=== PATIENT | male | born 2005 | race Caucasian/White ===

== ENCOUNTER 2023-03-07 20:56 | Inpatient (IN) | payer MEDICAID, SELFPAY ==
[2023-03-07 21:20] VITALS: BP 131/74; PULSE 97; RESP 12; TEMP 37.2; O2SAT 100
[2023-03-07 21:23] VITALS: BP 119/94; PULSE 106; O2SAT 98; BMI 20.4
[2023-03-07 21:42] LABS: Hematocrit 39.5 % (42.0-52.0); Hemoglobin 13.7 g/dl (14.0-18.0); Mean Corpuscular HGB Conc 34.7 g/dl (31.0-36.0); Mean Corpuscular Hemoglobin 31.4 pg (27.0-33.0); Mean Corpuscular Volume 90.4 fL (80.0-98.0); Mean Platelet Volume 8.9 fL (9.4-12.4); Platelet Count 279 X10*3/uL (160-400); Red Blood Count 4.37 X10*6/uL (4.60-5.80); Red Cell Distribution Width 11.6 % (11.0-16.0); White Blood Count 8.7 X10*3/uL (4.8-10.8)
[2023-03-07 21:44] LABS: Appearance Urine Clear; Color Urine Yellow; Glucose Urine UA Negative (Negative); Leukocyte Esterase Urine Moderate (2+) (Negative); Nitrite Urine Negative (Negative); PH 6.5 (5.0-9.0); Specific Gravity - Urine <= 1.005 (1.005-1.025); UMIC TRIGGER UACC YES; Urine Blood Negative (Negative); Urine Ketones Negative (Negative); Urine Protein Negative (Neg-Trace)
[2023-03-07 21:56] LABS: Alanine Aminotransferase 9 U/L (0-40); Albumin Level 4.6 g/dL (3.5-5.0); Alkaline Phosphatase 44 U/L (39-117); Anion Gap 9 (12-20); Aspartate Amino Transferase 15 U/L (5-37); Blood Urea Nitrogen 7 mg/dL (9-16); Calcium 9.8 mg/dL (8.4-10.2); Carbon Dioxide 26 mmol/L (22-29); Chloride 110 mmol/L (96-108); Creatinine Clr Calc Pharmacy 109.5; Estimated Glomerular Filt Rate > 60; Glucose Random 103 mg/dL (60-115); Potassium 3.7 mmol/L (3.3-5.1); Sodium 141 mmol/L (135-145); Total Protein 7.6 g/dL (6.5-8.0)
[2023-03-07 21:59] LABS: Bacteria Urine None Seen (None Seen); Hyaline Casts Urine 0-2 /LPF (0-2); RBC Urine 0-2 /HPF (0-2); Squamous Epithelial Cell Urine 0-2 /HPF (0-2); WBC Urine 0-5 /HPF (0-5)
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
[2023-03-07 22:18] LABS: Ethanol < 10 mg/dL
[2023-03-07 22:23] LABS: Amphetamine Screen Urine Not Detected (Not Detect); Barbiturates, Urine Not Detected (Not Detect); Benzodiazepines Screen Urine Not Detected (Not Detect); Cannabinoid Screen Urine Not Detected (Not Detect); Cocaine Screen Urine Not Detected (Not Detect); Fentanyl, urine Not Detected (Not Detect); Opiate Screen Urine Not Detected (Not Detect); Phencyclidine Screen Urine Not Detected (Not Detect)
[2023-03-07 22:56] LABS: COVID-19 Test Negative (Negative); IDNOW Serial# 08D9AD1C
[2023-03-08] VITALS (7 sets, daily range): BP systolic 107–143; BP diastolic 58–87; PULSE 65–84; RESP 14–18; TEMP 36.3–37.1; O2SAT 95–100
--- NOTE | 2023-03-08 01:32 | MHC.EDTECH ---
Pt was give peanut butter and jell sandwich 2 cheese sticks and 2 juices
--- NOTE | 2023-03-08 08:19 | PC.NURSE ---
Alert and oriented. Denies any SI at this time. States become overwhelmed yesterday when thinking about everything going on in his life. States calmer now and is trying to not think about his stresors at this time
--- NOTE | 2023-03-08 09:56 | PC.NURSE ---
Alert and oriented. Pleasant and cooperative. Remains with constant assisted living care manager. Denies pain, denies SI. VSS.
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
[2023-03-09 06:00] VITALS: BP 141/81; PULSE 103; RESP 18; TEMP 36.7; O2SAT 99
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
--- NOTE | 2023-03-09 19:01 | PC.NURSE ---
per patient takes testosterone 16.5/2.5 as an injection will call pharmacy to verify.
[2023-03-09 22:21] VITALS: BP 138/88; PULSE 82; TEMP 37; O2SAT 100
[2023-03-09] MEDS: OLANZapine 5 MG TABLET PO (22:31)
[2023-03-10 09:36] VITALS: BP 117/67; PULSE 89; RESP 16; TEMP 37.1; O2SAT 96
--- NOTE | 2023-03-10 14:15 | HO.PSYCHPN ---
Subjective Subjective Date of Service: 03/10/23 Reason For Visit: SI Interim History: met with patient; discussed with staff pt reports he's feeling a little better; no SI. Says he slept well last night and for most of the day but does not necesarily think it's due to starting Zyprexa but more likely catching up on sleep; he wants to continue with med regimen Mental Status Exam Mental Status Exam Narrative: Pt is alert and oriented; behavior is cooperative, friendly and calm; patient is not in distress; dressed in casual attire, wearing wool cap; mood is described as ok and affect congruent; eye contact appropriate; Speech is normal rate, volume and prosody and not pressured; psychomotor retardation present; thought process is organized and goal directed; Thought content is on tx; denies any SI/HI. There is no evidence of perceptual disturbance. Patients insight and judgment impaired. Diagnostics Vital Signs (24Hr): Vital Signs - 24 hr 03/09/23 22:21 03/10/23 09:36 Temperature 98.6 F 98.7 F Pulse Rate 82 89 Respiratory Rate 16 Blood Pressure 138/88 117/67 Pulse Oximetry 100 96 Oxygen Delivery Method Room Air Room Air BMI result Body Mass Index 20.4 Labs 03/07/23 21:34 03/07/23 21:34 Medications Medications Current Medications Acetaminophen (Acetaminophen 325 Mg Tablet) 650 mg PO Q6H PRN PRN Reason: Headache/Pain Mild Scale (1-3) Al Hydroxide/Mg Hydroxide (Magnesium Hydrox/Alum Hydrox 30 Ml Oral.Susp) 30 ml PO Q6H PRN PRN Reason: Heartburn/Nausea Hydroxyzine HCl (Hydroxyzine Hcl 25 Mg Tablet) 25 mg PO Q6H PRN PRN Reason: Anxiety Magnesium Hydroxide (Milk Of Magnesia 30 Ml Oral.Susp) 30 ml PO DAILY PRN PRN Reason: Constipation Nicotine Polacrilex (Nicotine Polacrilex 2 Mg Gum) 4 mg BUCCAL Q2H PRN PRN Reason: Nicotine Cravings Olanzapine (Olanzapine 5 Mg Tablet) 5 mg PO BEDTIME BARRIE Last Admin: 03/09/23 22:31 Dose: 5 mg Trazodone HCl (Trazodone Hcl 50 Mg Tablet) 50 mg PO BEDTIME MRX1 PRN PRN Reason: Insomnia Allergies Allergies Allergy/AdvReac Type Severity Reaction Status Date / Time doxycycline Allergy Rash Verified 03/07/23 21:56 Assessment & Plan Assessment & Plan (1) Unspecified episodic mood disorder: Status: Acute Code(s): F39 - Unspecified mood [affective] disorder (2) Transgender person on hormone therapy: Status: Acute Code(s): F64.0 - Transsexualism; Z79.899 - Other senior care (current) drug therapy (3) [id number] transgender person: Status: Acute Code(s): Z78.9 - Other specified health status (4) Anorexia nervosa in remission: Status: Acute Code(s): F50.00 - Anorexia nervosa, unspecified Plan do not continue previous regimen of vraylar, zoloft, hydroxyzine. start zyprexa 5 mg QHS. add SSRI in several days once tolerability of zyprexa is established. Hospital course: 03/10 continue current regimen Patient educated on: medication risk/benefits Informed Consent: understands Reason for continued inpatient stay Substantial Risk for: harm to self Time Spent With Patient Time: Total time managing care of this patient today ____ minutes.
[2023-03-10 20:30] VITALS: BP 113/56; PULSE 53; RESP 18; TEMP 36.9; O2SAT 100
[2023-03-10] MEDS: OLANZapine 5 MG TABLET PO (20:39)
--- NOTE | 2023-03-11 15:18 | P.PNPSI_ITS ---
Subjective Subjective Date of Service: 03/11/23 Reason For Visit: SI Interim History: calm, cooperative. too sleepy to describe his mood. beleives it may be related to zyprexa 5. agrees to decrease to 2.5 at HS and also to add melatonin 3 PRN. will try that regimen for the W/E and then discuss SSRIs again. per staff, in bed all day yesterday. declined 1:1 mtg. pleasant, tired. awaiting testosterone to be brought in by sister. dep 8, anx 7. + meds, meals, sleep. Mental Status Exam Mental Status Exam Narrative: severely acne pocked face, adequately dressed and groomed. cooperative. no PMA/PMR. speech nml rate, amount, loudness, tone, latency. thoughts linear and logical. affect full range, normo-intense, non-labile. mood too sleepy to describe. no SI/SIBI/HI/AVH expressed. Diagnostics Vital Signs (24Hr): Vital Signs - 24 hr 03/10/23 20:30 Temperature 98.4 F Pulse Rate 53 Respiratory Rate 18 Blood Pressure 113/56 L Pulse Oximetry 100 Oxygen Delivery Method Room Air BMI result Body Mass Index 20.4 Labs 03/07/23 21:34 03/07/23 21:34 Medications Medications Current Medications Acetaminophen (Acetaminophen 325 Mg Tablet) 650 mg PO Q6H PRN PRN Reason: Headache/Pain Mild Scale (1-3) Al Hydroxide/Mg Hydroxide (Magnesium Hydrox/Alum Hydrox 30 Ml Oral.Susp) 30 ml PO Q6H PRN PRN Reason: Heartburn/Nausea Hydroxyzine HCl (Hydroxyzine Hcl 25 Mg Tablet) 25 mg PO Q6H PRN PRN Reason: Anxiety Magnesium Hydroxide (Milk Of Magnesia 30 Ml Oral.Susp) 30 ml PO DAILY PRN PRN Reason: Constipation Melatonin (Melatonin 3 Mg Tablet) 3 mg PO BEDTIME PRN PRN Reason: Insomnia Nicotine Polacrilex (Nicotine Polacrilex 2 Mg Gum) 4 mg BUCCAL Q2H PRN PRN Reason: Nicotine Cravings Olanzapine (Olanzapine 2.5 Mg Tablet) 2.5 mg PO BEDTIME BARRIE Trazodone HCl (Trazodone Hcl 50 Mg Tablet) 50 mg PO BEDTIME MRX1 PRN PRN Reason: Insomnia Allergies Allergies Allergy/AdvReac Type Severity Reaction Status Date / Time doxycycline Allergy Rash Verified 03/07/23 21:56 Assessment & Plan Assessment & Plan (1) Unspecified episodic mood disorder: Status: Acute Code(s): F39 - Unspecified mood [affective] disorder (2) Transgender person on hormone therapy: Status: Acute Code(s): F64.0 - Transsexualism; Z79.899 - Other group home (current) drug therapy (3) [id number]-[id number] transgender person: Status: Acute Code(s): Z78.9 - Other specified health status (4) Anorexia nervosa in remission: Status: Acute Code(s): F50.00 - Anorexia nervosa, unspecified Plan 03/09: do not continue previous regimen of vraylar, zoloft, hydroxyzine. start zyprexa 5 mg QHS. add SSRI in several days once tolerability of zyprexa is established. 03/10 continue current regimen. 03/11: due to daytime sedation, decrease zyprexa to 2.5 QHS. add melatonin 3 PRN at pt request. review progress tuesday and T/C starting SSRI then. Reason for continued inpatient stay Substantial Risk for: harm to self, inability to function and rapid decompensation Time Spent With Patient Time: Total time managing care of this patient today __25__ minutes.
[2023-03-11 18:00] VITALS: BP 130/80; PULSE 110; TEMP 37.7; O2SAT 98
[2023-03-11] MEDS: OLANZapine 2.5 MG TABLET PO (20:45)
[2023-03-12 08:25] VITALS: BP 101/59; PULSE 70; RESP 18; TEMP 37.1; O2SAT 98
--- NOTE | 2023-03-12 09:52 | HO.PSYCHPN ---
Subjective Subjective Date of Service: 03/12/23 Reason For Visit: SI Subjective Notes: Conditional Voluntary Healthcare Proxy: No Guardianship: No Medical Problems Affecting Mental Status: No Interim History: Patient was seen and discussed in rounds today. Records and plans were reviewed. He has been doing better with less depression and still being anxious he does have some racing thoughts. Generally withdrawn. Safe on the unit. He is concerned about his apartment. No SI. No AVH. No complaints or side effects. Eating and sleeping adequately. No changes were made today Medication Compliance: Yes Side effects from medications: No Review of Systems Review of Systems Yes all other systems are reviewed and are negative Mental Status Exam Mental Status Exam Narrative: In today's visit he is alert, oriented and pleasant. Normal speech. Good eye contact. Affect is appropriate and varied. No signs of psychosis. No SI. Cognitively intact. Judgment is intact Diagnostics Vital Signs (24Hr): Vital Signs - 24 hr 03/11/23 18:00 03/12/23 08:25 Temperature 99.9 F 98.7 F Pulse Rate 110 H 70 Respiratory Rate 18 Blood Pressure 130/80 101/59 L Pulse Oximetry 98 98 Oxygen Delivery Method Room Air Room Air BMI result Body Mass Index 20.4 Labs 03/07/23 21:34 03/07/23 21:34 Medications Medications Current Medications Acetaminophen (Acetaminophen 325 Mg Tablet) 650 mg PO Q6H PRN PRN Reason: Headache/Pain Mild Scale (1-3) Al Hydroxide/Mg Hydroxide (Magnesium Hydrox/Alum Hydrox 30 Ml Oral.Susp) 30 ml PO Q6H PRN PRN Reason: Heartburn/Nausea Hydroxyzine HCl (Hydroxyzine Hcl 25 Mg Tablet) 25 mg PO Q6H PRN PRN Reason: Anxiety Magnesium Hydroxide (Milk Of Magnesia 30 Ml Oral.Susp) 30 ml PO DAILY PRN PRN Reason: Constipation Melatonin (Melatonin 3 Mg Tablet) 3 mg PO BEDTIME PRN PRN Reason: Insomnia Nicotine Polacrilex (Nicotine Polacrilex 2 Mg Gum) 4 mg BUCCAL Q2H PRN PRN Reason: Nicotine Cravings Olanzapine (Olanzapine 2.5 Mg Tablet) 2.5 mg PO BEDTIME BARRIE Last Admin: 03/11/23 20:45 Dose: 2.5 mg Trazodone HCl (Trazodone Hcl 50 Mg Tablet) 50 mg PO BEDTIME MRX1 PRN PRN Reason: Insomnia Allergies Allergies Allergy/AdvReac Type Severity Reaction Status Date / Time doxycycline Allergy Rash Verified 03/07/23 21:56 Assessment & Plan Assessment & Plan (1) Unspecified episodic mood disorder: Status: Acute Code(s): F39 - Unspecified mood [affective] disorder (2) 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 start zyprexa 5 mg QHS. add SSRI in several days once tolerability of zyprexa is established. 03/10 continue current regimen. 03/11: due to daytime sedation, decrease zyprexa to 2.5 QHS. add melatonin 3 PRN at pt request. review progress tuesday and T/C starting SSRI then. 03/12: Continue current regimen and plans. Reason for continued inpatient stay Substantial Risk for: med/psych decompensation Time Spent With Patient Time: Total time managing care of this patient today ____ minutes.
[2023-03-12 21:46] VITALS: BP 126/61; PULSE 83; TEMP 36.9; O2SAT 99
[2023-03-12] MEDS: OLANZapine 2.5 MG TABLET PO (21:50)
[2023-03-12] MEDS: Melatonin 3 MG TABLET PO (21:50)
--- NOTE | 2023-03-13 09:40 | HO.PSYCHPN ---
Subjective Subjective Date of Service: 03/13/23 Reason For Visit: SI Subjective Notes: Conditional Voluntary Healthcare Proxy: No Guardianship: No Medical Problems Affecting Mental Status: No Interim History: Patient was seen and discussed in rounds today. Records and plans were reviewed. He has been stable and doing better. He continues to have some anxiety. He is safe on the unit. Eating and sleeping well. He is social, attending some groups. Thinking and planning for how to go about seeking work. No complaints or side effects. He no changes were made today Medication Compliance: Yes Side effects from medications: No Review of Systems Review of Systems Yes all other systems are reviewed and are negative Mental Status Exam Mental Status Exam Narrative: In today's visit he is alert, oriented and pleasant. Normal speech. Good eye contact. Affect is appropriate and varied. No signs of psychosis. No SI. Cognitively intact. Judgment is intact Diagnostics Vital Signs (24Hr): Vital Signs - 24 hr 03/12/23 21:46 Temperature 98.5 F Pulse Rate 83 Blood Pressure 126/61 Pulse Oximetry 99 Oxygen Delivery Method Room Air BMI result Body Mass Index 20.4 Labs 03/07/23 21:34 03/07/23 21:34 Medications Medications Current Medications Acetaminophen (Acetaminophen 325 Mg Tablet) 650 mg PO Q6H PRN PRN Reason: Headache/Pain Mild Scale (1-3) Al Hydroxide/Mg Hydroxide (Magnesium Hydrox/Alum Hydrox 30 Ml Oral.Susp) 30 ml PO Q6H PRN PRN Reason: Heartburn/Nausea Hydroxyzine HCl (Hydroxyzine Hcl 25 Mg Tablet) 25 mg PO Q6H PRN PRN Reason: Anxiety Magnesium Hydroxide (Milk Of Magnesia 30 Ml Oral.Susp) 30 ml PO DAILY PRN PRN Reason: Constipation Melatonin (Melatonin 3 Mg Tablet) 3 mg PO BEDTIME PRN PRN Reason: Insomnia Last Admin: 03/12/23 21:50 Dose: 3 mg Nicotine Polacrilex (Nicotine Polacrilex 2 Mg Gum) 4 mg BUCCAL Q2H PRN PRN Reason: Nicotine Cravings Olanzapine (Olanzapine 2.5 Mg Tablet) 2.5 mg PO BEDTIME BARRIE Last Admin: 03/12/23 21:50 Dose: 2.5 mg Trazodone HCl (Trazodone Hcl 50 Mg Tablet) 50 mg PO BEDTIME MRX1 PRN PRN Reason: Insomnia Allergies Allergies Allergy/AdvReac Type Severity Reaction Status Date / Time doxycycline Allergy Rash Verified 03/07/23 21:56 Assessment & Plan Assessment & Plan (1) Unspecified episodic mood disorder: Status: Acute Code(s): F39 - Unspecified mood [affective] disorder (2) 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 start zyprexa 5 mg QHS. add SSRI in several days once tolerability of zyprexa is established. 03/10 continue current regimen. 03/11: due to daytime sedation, decrease zyprexa to 2.5 QHS. add melatonin 3 PRN at pt request. review progress tuesday and T/C starting SSRI then. 03/12: Continue current regimen and plans. 03/13: Continue current regimen and plans Reason for continued inpatient stay Substantial Risk for: med/psych decompensation Time Spent With Patient Time: Total time managing care of this patient today ____ minutes.
[2023-03-13 10:10] VITALS: BP 131/60; PULSE 94; TEMP 36.9; O2SAT 99
[2023-03-13 20:05] VITALS: BP 149/96; PULSE 80; RESP 18; TEMP 36.9; O2SAT 100
[2023-03-13] MEDS: OLANZapine 2.5 MG TABLET PO (20:46)
[2023-03-13] MEDS: Melatonin 3 MG TABLET PO (20:47)
--- NOTE | 2023-03-14 02:28 | PC.NURSE ---
Drew is noted to be visible throughout the evening. he is social with select peers plaesant and cooperative. he continues to endorse depression 05/02 and anxiety 03/03
--- NOTE | 2023-03-14 02:30 | PC.NURSE ---
Drew is noted to have been visible on the unit throughout the evening. he is social with select peers, pleasant and cooperative. he denies suicidal/homicidal ideation and auditory/visual hallucinations he states that although he is feeling better he continues to endorse depression /10 and anxiety 5/10. no behavioral concerns noted, monitor of ro safety, continue Plan of are
[2023-03-14 06:00] VITALS: BP 122/80; PULSE 92; RESP 18; TEMP 36.7; O2SAT 100
[2023-03-14] MEDS: lamoTRIgine 25 MG TABLET 12.5 MG PO ×2 (12:04→22:10)
[2023-03-14] MEDS: Testosterone Cypionate 200 MG/1 ML VIAL 50 MG SUBCUT (14:26)
--- NOTE | 2023-03-14 14:58 | HO.PSYCHPN ---
Subjective Subjective Date of Service: 03/14/23 Reason For Visit: SI Interim History: reports weekend went adequately well. lower dose of zyprexa seems to be working well. discuss depression and antidepressant Tx in bipolar D/O. agree wellbutrin not a great choice due to pt's penchant for misusing medications, eating disorder, and risk of Sz. pt agrees to trial of lamictal. R/B discussed, including negro brenda syndrome. per staff, anx/dep. + groups. jittery, nervous. friend visit. no SI/SIBI. anx re upcoming DC. feeling better yesterday. planning to stay in [place]. slept well. Mental Status Exam Mental Status Exam Narrative: severely acne pocked face, adequately dressed and groomed. cooperative. no PMA/PMR. speech nml rate, amount, loudness, tone, latency. thoughts linear and logical. affect full range, normo-intense, non-labile. mood better. no SI/SIBI/HI/AVH expressed. Diagnostics Vital Signs (24Hr): Vital Signs - 24 hr 03/13/23 20:05 03/14/23 06:00 Temperature 98.4 F 98.0 F Pulse Rate 80 92 Respiratory Rate 18 18 Blood Pressure 149/96 H 122/80 Pulse Oximetry 100 100 Oxygen Delivery Method Room Air Room Air BMI result Body Mass Index 20.4 Labs 03/07/23 21:34 03/07/23 21:34 Medications Medications Current Medications Acetaminophen (Acetaminophen 325 Mg Tablet) 650 mg PO Q6H PRN PRN Reason: Headache/Pain Mild Scale (1-3) Al Hydroxide/Mg Hydroxide (Magnesium Hydrox/Alum Hydrox 30 Ml Oral.Susp) 30 ml PO Q6H PRN PRN Reason: Heartburn/Nausea Hydroxyzine HCl (Hydroxyzine Hcl 25 Mg Tablet) 25 mg PO Q6H PRN PRN Reason: Anxiety Lamotrigine (Lamotrigine 25 Mg Tablet) 12.5 mg PO BID BARRIE Magnesium Hydroxide (Milk Of Magnesia 30 Ml Oral.Susp) 30 ml PO DAILY PRN PRN Reason: Constipation Melatonin (Melatonin 3 Mg Tablet) 3 mg PO BEDTIME PRN PRN Reason: Insomnia Last Admin: 03/13/23 20:47 Dose: 3 mg Nicotine Polacrilex (Nicotine Polacrilex 2 Mg Gum) 4 mg BUCCAL Q2H PRN PRN Reason: Nicotine Cravings Olanzapine (Olanzapine 2.5 Mg Tablet) 2.5 mg PO BEDTIME BARRIE Last Admin: 03/13/23 20:46 Dose: 2.5 mg Trazodone HCl (Trazodone Hcl 50 Mg Tablet) 50 mg PO BEDTIME MRX1 PRN PRN Reason: Insomnia Allergies Allergies Allergy/AdvReac Type Severity Reaction Status Date / Time doxycycline Allergy Rash Verified 03/07/23 21:56 Assessment & Plan Assessment & Plan (1) Unspecified episodic mood disorder: Status: Acute Code(s): F39 - Unspecified mood [affective] disorder (2) 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 start zyprexa 5 mg QHS. add SSRI in several days once tolerability of zyprexa is established. 03/10 continue current regimen. 03/11: due to daytime sedation, decrease zyprexa to 2.5 QHS. add melatonin 3 PRN at pt request. review progress tuesday and T/C starting SSRI then. 03/12: Continue current regimen and plans. 03/13: Continue current regimen and plans 03/14: give testosterone injection of 0.25 mL of 200 mg/mL today (weekly, mondays). add lamictal 12.5 mg PO BID for antidepressant in presumed bipolar disorder. Reason for continued inpatient stay Substantial Risk for: inability to function and rapid decompensation Time Spent With Patient Time: Total time managing care of this patient today __25__ minutes.
[2023-03-14 20:20] VITALS: BP 133/79; PULSE 83; RESP 18; TEMP 37.1; O2SAT 99
[2023-03-14] MEDS: OLANZapine 2.5 MG TABLET PO (22:09)
[2023-03-14] MEDS: Melatonin 3 MG TABLET PO (22:10)
--- NOTE | 2023-03-15 03:24 | PC.NURSE ---
Addendum entered by Dhara Mcbride RN 03/15/23 05:18: Drew c/o urinary frequency and urgency, he denies pain or burning with urination as well as a strong odor Original Note: Drew stated that he had a good but stressful day. he did not elude to why his day had been stressful. he denies depression/anxiety and auditory/visual hallucinations. he endorses depression 6/10 and anxiety 9/10. no behavioral concerns, monitor for safety, continue Plan of Care
[2023-03-15 08:49] VITALS: BP 131/84; PULSE 77; RESP 18; TEMP 36.8; O2SAT 99
[2023-03-15] MEDS: lamoTRIgine 25 MG TABLET 12.5 MG PO ×2 (08:56→20:44)
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
[2023-03-15 18:00] VITALS: BP 141/76; PULSE 86; TEMP 36.8; O2SAT 100
[2023-03-15] MEDS: Melatonin 3 MG TABLET PO (20:44)
[2023-03-15] MEDS: OLANZapine 2.5 MG TABLET PO (20:44)
[2023-03-15 21:39] LABS: Appearance Urine Clear; Color Urine Yellow; Glucose Urine UA Negative (Negative); Leukocyte Esterase Urine Negative (Negative); Nitrite Urine Negative (Negative); UMIC TRIGGER UACC YES; Urine Blood Trace (Negative); Urine Ketones Negative (Negative); Urine Protein Negative (Neg-Trace)
[2023-03-15 21:41] LABS: Bacteria Urine None Seen (None Seen); Hyaline Casts Urine 0-2 /LPF (0-2); RBC Urine 0-2 /HPF (0-2); Squamous Epithelial Cell Urine 0-2 /HPF (0-2); WBC Urine 0-5 /HPF (0-5)
[2023-03-16 09:00] VITALS: BP 112/56; PULSE 70; RESP 16; TEMP 37.1; O2SAT 98
[2023-03-16] MEDS: lamoTRIgine 25 MG TABLET 12.5 MG PO (09:41)
--- NOTE | 2023-03-16 12:56 | PC.NURSE ---
Patient easily engaged. Reports mood is stable, denies depression or sadness. Denies SI/HI plan or intent. Denies self harming thoughts. Denies perceptual disturbances, no overt psychosis or expressed delusions. Reports he plans to go to his apartment first then spend a few days at his parents home. Discharge paperwork reviewed, reported understanding. Medications reviewed with patient reports understanding. All belongings taken with patient. Medications returned to patient. Crisis numbers provided to patient.
== END 2023-03-16 12:43 | disposition home or self-care (01) | DRG 753 ==
LOC: HO.ED 03-08 14:18 → HO.PADLT16 03-08 15:00
PROVIDERS: Physician Assistant; Social Worker; Admitting Provider Psychiatry & Neurology Psychiatry; Emergency Provider Internal Medicine; Visit Provider Psychiatry & Neurology Psychiatry
DX: F39 Unspecified mood [affective] disorder (principal); F50.00 Anorexia nervosa, unspecified; R45.851 Suicidal ideations; F41.9 Anxiety disorder, unspecified; F64.0 Transsexualism; Z91.148 Patient's other noncompliance with medication regimen for other reason; Z20.822 Contact with and (suspected) exposure to COVID-19; Z88.1 Allergy status to other antibiotic agents; Z79.899 Other long term (current) drug therapy
CPT/HCPCS: 36415; 80053; 80307; 81001; 85027; 87635; 99285; J1071